=== PATIENT | male | born 1985 | race African-American/Black ===

== ENCOUNTER → 2021-08-14 | Outpatient (CLI) | payer SELFPAY ==
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
== END ==
LOC: RAD 16:20
PROVIDERS: ATTEND Family Medicine
DX: M25.78 Osteophyte, vertebrae (principal); M47.815 Spondylosis without myelopathy or radiculopathy, thoracolumbar region; W34.00XS Accidental discharge from unspecified firearms or gun, sequela
CPT/HCPCS: 72080